=== PATIENT | male | born 1985 | race Two or more races ===

== ENCOUNTER 2024-01-05 12:22 | Emergency (ER) | payer MEDICAID, OTHER ==
[~2024-01-05] VITALS: Ht 177.8 cm; Wt 65.4 kg
[2024-01-05] MEDS ORDERED: IBUP-1454 PO (13:10)
[2024-01-05] MEDS ORDERED: CLIN1CAP70 PO (13:10)
[2024-01-05 13:15] VITALS: BP 100/72; PULSE 60; RESP 16; TEMP 98.7; O2SAT 99
== END 2024-01-05 13:17 | disposition home or self-care (01) ==
LOC: ER 12:22
DX: K04.7 Periapical abscess without sinus (principal); Z79.1 Long term (current) use of non-steroidal anti-inflammatories (NSAID); Z79.2 Long term (current) use of antibiotics